=== PATIENT | female | born 2005 | race Two or more races ===

== ENCOUNTER 2025-04-23 01:15 | Emergency (ER) | payer OTHER ==
[~2025-04-23] VITALS: Ht 175.3 cm; Wt 98.1 kg
[~2025-04-23 01:15] MED LIST: CEPH-350 PO
[2025-04-23 01:18] VITALS: BP 134/82; PULSE 81; RESP 18; TEMP 97.9; O2SAT 98
[2025-04-23] MEDS ORDERED: DUONEB 0.5-3(2.5) MG/3 ML IH ONE (01:31)
[2025-04-23 01:36] VITALS: PULSE 88; RESP 18; O2SAT 97
[2025-04-23] MEDS: DUONEB 0.5-3(2.5) MG/3 ML IH STA (01:42)
[2025-04-23 01:52] VITALS: PULSE 99; RESP 18; O2SAT 98
== END 2025-04-23 01:58 | disposition home or self-care (01) ==
LOC: ER 01:15
DX: J45.909 Unspecified asthma, uncomplicated (principal); F17.290 Nicotine dependence, other tobacco product, uncomplicated
CPT/HCPCS: 99283; 94640; J7512